=== PATIENT | male | born 1955 | race American Indian/Alaskan Native ===

== ENCOUNTER 2021-02-26 10:41 | Outpatient (CLI) | payer OTHER ==
--- NOTE | 2021-02-27 12:09 | XRay Report ---
CHEST 2 VIEWS INDICATION / CLINICAL INFORMATION: PREOP EXAMINATION. COMPARISON: None available. FINDINGS: SUPPORT DEVICES: None. HEART / MEDIASTINUM: No significant abnormality. LUNGS / PLEURA: No significant pulmonary or pleural abnormality. No pneumothorax. ADDITIONAL FINDINGS: No significant additional findings. IMPRESSION: 1. No acute findings. Signer Name: Barrett Irving MD Signed: 02/26/2021 11:18 AM Workstation Name: [id number]
== END 2021-02-26 10:42 | disposition home or self-care (01) ==
LOC: SPVIMAG 10:41
PROVIDERS: ATTEND Internal Medicine
DX: Z01.818 Encounter for other preprocedural examination (principal)
CPT/HCPCS: 71046